=== PATIENT | male | born 1950 | race Caucasian/White ===

== ENCOUNTER 2022-04-09 19:20 | Emergency (ER) | payer MEDICARE, OTHER ==
[2022-04-09] MEDS ORDERED: ONDANSETRON 4 MG/2 ML VIAL IVP STA (19:53)
[2022-04-09] MEDS ORDERED: SODIUM CHLORIDE 0.9% 1,000 ML IV STA (19:53)
--- NOTE | 2022-04-09 19:55 | ED Physician Documentation ---
PD HPI ABD PAIN - Stated complaint Stated Complaint: VOMITING/UPPER ABDOMINAL PX - Chief complaint Chief Complaint: Abd Pain - History obtained from History obtained from: Patient - Additional information Additional information: Patient is a 72-year-old male with a history of GERD presenting for evaluation of epigastric pain and nausea with vomiting for 2 days. He initially reported the emesis consisted of food but now it is mostly liquids and bile. He reports having difficulty keeping any p.o. intake down. He denies blood or coffee- ground appearance to his emesis. He has not had a bowel movement in 4 days. He does pass some gas. He denies any history of abdominal surgeries. He reports p.o. intake makes his pain worse. He denies fever, cough, chest pain, difficulty breathing, back pain. He reports 2 days ago he was helping lift a large relative and believes this caused a strain injury but his pain did not start right away and started a few hours later. He denies using NSAIDs or alcohol. He does use marijuana occasionally. Review of Systems Constitutional: denies: Fever Nose: denies: Congestion Cardiac: denies: Chest pain / pressure, Palpitations Respiratory: denies: Dyspnea, Cough GI: reports: Abdominal Pain, Nausea, Vomiting. denies: Diarrhea, Bloody / black stool : denies: Dysuria Skin: denies: Rash Musculoskeletal: denies: Back pain Neurologic: denies: Headache PD PAST MEDICAL HISTORY - Past Medical History Past Medical History: Yes Cardiovascular: Hypertension - Past Surgical History Past Surgical History: Yes Ortho: Other - Present Medications Home Medications: Ambulatory Orders Medication Instructions Recorded Confirmed Famotidine [Pepcid] 20 mg PO BID #60 tablet 04/09/22 Ondansetron Odt [Zofran] 4 mg TL Q6H PRN #10 tablet 04/09/22 - Allergies Allergies/Adverse Reactions: Allergies Allergy/AdvReac Type Severity Reaction Status Date / Time No Known Drug Allergies Allergy Verified 04/09/22 19:32 - Social History Does the pt smoke?: No Smoking Status: Never smoker Does the pt drink ETOH?: No Does the pt have substance abuse?: No - Immunizations Immunizations are current?: No Immunizations: TDAP >10years/unknown, Other immun not current PD ED PE NORMAL - General General: Alert and oriented X 3, No acute distress, Well developed/nourished - HEENT HEENT: Atraumatic. No: Moist mucous membranes (Dry oral mucosa) - Neck Neck: Supple, no meningeal sign - Cardiac Cardiac: RRR, No murmur, Strong equal pulses - Respiratory Respiratory: No respiratory distress, Clear bilaterally - Abdomen Abdomen: Normal bowel sounds, Soft, Non distended, Other (Epigastric abdominal tenderness, no rebound, no guarding, no RUQ tenderness on deep palpation, no mass or hernia) - Back Back: No CVA TTP - Derm Derm: No rash - Extremities Extremities: No edema - Neuro Neuro: Normal speech - Psych Psych: Normal mood Results - Vitals Vitals: Vital Signs - 24 hr 04/09/22 04/09/22 04/09/22 19:27 21:53 22:23 Temperature 36.7 C Heart Rate 117 H 84 89 Respiratory 17 18 18 Rate Blood Pressure 160/99 H 159/103 H 127/99 H O2 Saturation 97 97 99 Oxygen O2 Source Room air - EKG (time done) 1955 Rate: Rate (enter#) (100) Rhythm: Sinus tachycardia Ischemia: No: ST elevation c/w ischemia Compare to prior EKG: Old EKG unavailable - Labs Labs: Laboratory Tests 04/09/22 04/09/22 04/09/22 19:55 19:55 19:55 WBC 9.4 RBC 5.91 Hgb 18.4 H Hct 52.4 H MCV 88.7 MCH 31.1 H MCHC 35.1 RDW 12.0 Plt Count 255 MPV 9.2 Neut # (Auto) 6.4 Lymph # (Auto) 2.0 [place] # (Auto) 0.9 Eos # (Auto) 0.0 Baso # (Auto) 0.0 Absolute Nucleated RBC 0.00 Nucleated RBC % 0.0 Sodium 132 L Potassium 3.3 L Chloride 98 L Carbon Dioxide 24 Anion Gap 10.0 BUN 18 Creatinine 0.9 Estimated GFR (MDRD) 83 L Glucose 124 H Lactic Acid Calcium 9.2 Total Bilirubin 1.5 H AST 23 ALT 29 Alkaline Phosphatase 48 Troponin I High Sens 11.8 Total Protein 7.1 Albumin 4.0 Globulin 3.1 Albumin/Globulin Ratio 1.3 Lipase 61 H Urine Color Urine Clarity Urine pH Ur Specific [place] Urine Protein Urine Glucose (UA) Urine Ketones Urine Occult Blood Urine Nitrite Urine Bilirubin Urine Urobilinogen Ur Leukocyte Esterase Ur Microscopic Review Urine Culture Comments 04/09/22 04/09/22 20:03 21:29 WBC RBC Hgb Hct MCV MCH MCHC RDW Plt Count MPV Neut # (Auto) Lymph # (Auto) [place] # (Auto) Eos # (Auto) Baso # (Auto) Absolute Nucleated RBC Nucleated RBC % Sodium Potassium Chloride Carbon Dioxide Anion Gap BUN Creatinine Estimated GFR (MDRD) Glucose Lactic Acid 1.2 Calcium Total Bilirubin AST ALT Alkaline Phosphatase Troponin I High Sens Total Protein Albumin Globulin Albumin/Globulin Ratio Lipase Urine Color YELLOW Urine Clarity CLEAR Urine pH 7.0 Ur Specific [place] 1.015 Urine Protein NEGATIVE Urine Glucose (UA) NEGATIVE Urine Ketones 15 H Urine Occult Blood TRACE-INTA Urine Nitrite NEGATIVE Urine Bilirubin NEGATIVE Urine Urobilinogen 0.2 (NORMAL) Ur Leukocyte Esterase NEGATIVE Ur Microscopic Review NOT INDICATED Urine Culture Comments NOT INDICATED PD MEDICAL DECISION MAKING - ED course Complexity details: reviewed results, re-evaluated patient, d/w patient ED course: Patient presenting for evaluation of upper abdominal pain with associated nausea and vomiting. An EKG was obtained showing 80 sinus rhythm. Labs were obtained including a lactic given initial tachycardia and troponin. Patient does not appear septic. His troponin is negative. Other labs were reviewed and a CT scan was obtained demonstrating renal cyst but otherwise no acute findings. Urinalysis is negative for infection. Patient had significant improvement in his symptoms with Zofran and GI cocktail and had no further episodes of emesis.His tachycardia improved and he was able to tolerate p.o. replacement of his potassium.Patient was started on medications for GERD as well as given prescription for Zofran. He is aware of strict return precautions for any worsening of his symptoms and was given information to establish care with a PCP.Patient was ambulatory at discharge. 2210 - Feeling better, resting comfortably, does not have a PCP. Discussed recommendations for medications as well asDiet. Departure - Departure Disposition: 01 Home, Self Care Clinical Impression: Epigastric abdominal pain Nausea & vomiting Qualifiers: Vomiting type: unspecified Qualified Code(s): R11.2 - Nausea with vomiting, unspecified Condition: Stable Instructions: ED PUD Vs Gastritis, ED Nausea Vomiting Follow-Up: Farshad Robledo MD [Physician No Access] - Prescriptions: Famotidine [Pepcid] 20 mg PO BID #60 tablet Ondansetron Odt [Zofran] 4 mg TL Q6H PRN #10 tablet PRN Reason: Nausea / Vomiting Comments: You were evaluated for pain to the upper abdomen along with vomiting. Your potassium was slightly low but we gave you potassium pill today. Otherwise the rest of your labs were fairly unremarkable. We checked a marker with your heart which also does not show any signs of a heart attack. Your CT scan showed cysts on Both of your kidneys which are not concerning at this time.Your symptoms could be related to your history of acid reflux. I will start you on a medication To help lower acid in your stomach as well as an antinausea medication. I do recommend that you establish care with a primary care doctor. As you do not have 1 I have included the name of a physician you can call tomorrow for an appointment.Please avoid any medications such as NSAIDs which may further irritate your stomach as well as anything too spicy or acidic.If you have any worsening symptoms, please return to the emergency department. I have sent prescriptions to [facility] in [place]. Discharge Date/Time: 04/09/22 22:25
[2022-04-09 20:02] LABS: BASOPHILS % (AUTO) 0.3 %; EOSINOPHILS % (AUTO) 0.2 %; HCT - HEMATOCRIT 52.4 % (42.0-52.0); HGB - HEMOGLOBIN 18.4 g/dL (14.0-18.0); LYMPHOCYTES % (AUTO) 21.2 %; MEAN CORPUSCULAR HEMOGLOBIN 31.1 pg (27.0-31.0); MEAN CORPUSCULAR HGB CONC 35.1 g/dL (32.0-36.0); MEAN CORPUSCULAR VOLUME 88.7 fL (80.0-94.0); MEAN PLATELET VOLUME 9.2 fL (7.4-11.4); MONOCYTES # (AUTO) 0.9 10^3/uL (0.0-1.0); MONOCYTES % (AUTO) 9.5 %; NEUTROPHILS # (AUTO) 6.4 10^3/uL (1.5-6.6); NEUTROPHILS % (AUTO) 68.5 %; PLT - PLATELET COUNT 255 10^3/uL (130-450); RED BLOOD COUNT 5.91 10^6/uL (4.70-6.10); WHITE BLOOD COUNT 9.4 x10^3/uL (4.8-10.8)
[2022-04-09 20:13] LABS: ALBUMIN/GLOBULIN RATIO 1.3 (1.0-2.2); BILIRUBIN,TOTAL 1.5 mg/dL (0.2-1.0); CALCIUM 9.2 mg/dL (8.5-10.3); CREATININE 0.9 mg/dL (0.6-1.2); POTASSIUM 3.3 mmol/L (3.5-5.0); TOTAL PROTEIN 7.1 g/dL (6.7-8.2)
--- NOTE | 2022-04-09 21:12 | CT Report ---
PROCEDURE: Abdomen/Pelvis WO INDICATIONS: upper abd pain/intractable vomiting TECHNIQUE: Noncontrast 5 mm thick sections acquired from the diaphragms to the symphysis. 5 mm coronal and sagi ttal reformats were then performed. For radiation dose reduction, the following was used: automated exposure control, adjustment of mA and/or kV according to patient size. COMPARISON: None. FINDINGS: Image quality: Excellent. Lung bases:There is mild atelectasis and scarring the lung bases. Within the left lower lobe, there is a 0.4 cm nodule on series 4 image 39. A 0.3 cm nodule is also present in the left lower lobe on se erin 4 image 7. In the right lower lobe, there are 2 small 0.4 cm nodules on series 4 image 11. A 0.3 cm nodule is also present in the right middle lobe on image 4 image 8. Heart: Heart is normal in size. There is a small hiatal hernia. ABDOMEN: Liver:Noncontrast evaluation of the liver demonstrates no discrete hepatic mass. Gallbladder: Within normal limits without calcified gallstones. Biliary ducts: No biliary ductal dilatation. Pancreas: Unremarkable. Spleen: Normal in size. Adrenal Glands: No adrenal nodules. Kidneys and Ureters: No hydronephrosis.There are bilateral exophytic and parapelvic renal cysts. No nspecific perinephric stranding is demonstrated bilaterally.The ureters are nondistended. Stomach and Bowel: Stomach, small bowel loops, and colon are normal in caliber and wall thickness. T he appendix is normal in appearance. There is colonic diverticulosis without acute diverticular colit is. Peritoneum: No abnormal intraperitoneal fluid. No free air. Ventral Wall: No hernia. Abdominal Nodes: No retroperitoneal or mesenteric adenopathy by size criteria. Vessels: Aorta and inferior vena cava are normal in size. PELVIS: Pelvic Organs: Unremarkable. Bladder: Unremarkable. Pelvic Nodes: No enlarged lymph nodes. Miscellaneous: No inguinal hernias are seen. Bones: Visualized osseous structures demonstrate no suspicious focal lesions. IMPRESSION: 1. Bilateral nonspecific perinephric stranding. Recommend correlation clinically for possible pyelone phritis. 2. Multiple bilateral renal cysts without evidence of hydronephrosis. 3. Colonic diverticulosis without acute diverticulitis. 4. No evidence of bowel obstruction. Reviewed by: Mitchell Richter MD on 04/09/2022 9:11 PM PDT Approved by: Mitchell Richter MD on 04/09/2022 9:11 PM PDT Station ID: [id number]
[2022-04-09] MEDS ORDERED: LIDOCAINE VISCOUS 2% 15 ML UDC MM STA (21:24)
[2022-04-09] MEDS ORDERED: MAG HYDROX/AL HYDROX/SIMETH 30 ML UDC PO STA (21:24)
[2022-04-09 21:53] LABS: BILIRUBIN,URINE NEGATIVE (NEGATIVE); GLUCOSE, URINE (UA) NEGATIVE (NEGATIVE); KETONES,URINE (UA) 15 mg/dL (NEGATIVE); LEUKOCYTE ESTERASE, URINE NEGATIVE (NEGATIVE); NITRITE,URINE NEGATIVE (NEGATIVE); OCCULT BLOOD,URINE TRACE-INTA (NEGATIVE); PROTEIN,URINE NEGATIVE (NEGATIVE); UROBILINOGEN,URINE 0.2 (NORMAL) E.U./dL (NORMAL)
[2022-04-09 21:54] LABS: CLARITY,URINE CLEAR (CLEAR)
[2022-04-09] MEDS ORDERED: ONDANSETRON ODT 4 MG Prepack 2 TL PRN (22:12)
[2022-04-09] MEDS ORDERED: POTASSIUM CHLORIDE 20 MEQ TABLET PO STA (22:12)
[2022-04-09 22:24] VITALS: BP 127/99
== END 2022-04-09 22:25 | disposition home or self-care (01) ==
LOC: ED 19:20
DX: R10.13 Epigastric pain (principal); R11.2 Nausea with vomiting, unspecified; I10 Essential (primary) hypertension; N28.1 Cyst of kidney, acquired
CPT/HCPCS: 36415; 74176; 80053; 81003; 83605; 83690; 84484; 85025; 93005; 96361; 96374; 99282; 99284; A9270; 81001; 87086

== ENCOUNTER 2024-03-10 10:31 | Emergency (ER) | payer MEDICARE, OTHER ==
[2024-03-10 11:16] LABS: BASOPHILS % (AUTO) 0.2 %; HCT - HEMATOCRIT 57.5 % (42.0-52.0); HGB - HEMOGLOBIN 19.4 g/dL (14.0-18.0); LYMPHOCYTES # (AUTO) 2.9 10^3/uL (1.5-3.5); LYMPHOCYTES % (AUTO) 23.3 %; MEAN CORPUSCULAR HEMOGLOBIN 30.7 pg (27.0-31.0); MEAN CORPUSCULAR HGB CONC 33.7 g/dL (32.0-36.0); MEAN CORPUSCULAR VOLUME 91.1 fL (80.0-94.0); MEAN PLATELET VOLUME 9.4 fL (7.4-11.4); MONOCYTES # (AUTO) 1.2 10^3/uL (0.0-1.0); MONOCYTES % (AUTO) 9.6 %; NEUTROPHILS # (AUTO) 8.4 10^3/uL (1.5-6.6); NEUTROPHILS % (AUTO) 66.7 %; PLT - PLATELET COUNT 302 10^3/uL (130-450); RED BLOOD COUNT 6.31 10^6/uL (4.70-6.10); RED CELL DISTRIBUTION WIDTH 12.5 % (12.0-15.0); WHITE BLOOD COUNT 12.6 x10^3/uL (4.8-10.8)
[2024-03-10 11:17] LABS: BILIRUBIN,URINE MODERATE (NEGATIVE); GLUCOSE, URINE (UA) NEGATIVE (NEGATIVE); KETONES,URINE (UA) >=80 mg/dL (NEGATIVE); LEUKOCYTE ESTERASE, URINE NEGATIVE (NEGATIVE); NITRITE,URINE NEGATIVE (NEGATIVE); OCCULT BLOOD,URINE TRACE-INTA (NEGATIVE); PROTEIN,URINE 100 mg/dL (NEGATIVE); UROBILINOGEN,URINE 0.2 (NORMAL) E.U./dL (NORMAL)
[2024-03-10 11:28] LABS: CLARITY,URINE CLEAR (CLEAR)
[2024-03-10 11:37] LABS: BACTERIA,URINE Moderate /HPF (None Seen); RBC,URINE 0-5 /HPF (0-5); SQUAMOUS EPITHELIAL CELL,UR FEW Squamous (<= Few)
[2024-03-10 11:38] LABS: MUCUS,URINE Marked Strands
[2024-03-10 11:50] LABS: ALBUMIN 4.7 g/dL (3.2-5.5); ALBUMIN/GLOBULIN RATIO 1.9 (1.0-2.2); CALCIUM 10.1 mg/dL (8.5-10.3); CREATININE 1.2 mg/dL (0.6-1.3); POTASSIUM 3.6 mmol/L (3.5-4.5); TOTAL PROTEIN 7.2 g/dL (6.4-8.9)
--- NOTE | 2024-03-10 13:32 | ED Physician Documentation ---
PD HPI NVD - Stated complaint Stated Complaint: THROAT CLOGGED - Chief complaint Chief Complaint: Abd Pain - History obtained from History obtained from: Patient - History of Present Illness Timing - onset: How many days ago (4) Timing - duration: Days (4) Timing - details: Abrupt onset (had dinner at 6 pm without problems and had not noted upper abd pain nor heartburn. Awoke 2 am with nausea and vomiting that has persisted with any attempt at PO intake except smallest sips. emesis is clear. Not vomiting saliva.), Still present Associated symptoms: Abdominal pain (epigastric area). No: Loss of appetite Contributing factors: No: Sick contact, Bad food, Alcohol use Similar symptoms before: Has not had sx before Recently seen: Clinic (went to walk in this morning and referred to ER.) Review of Systems Constitutional: denies: Fever, Chills Nose: denies: Rhinorrhea / runny nose, Congestion Throat: denies: Sore throat Respiratory: denies: Cough GI: reports: Abdominal Pain, Nausea, Vomiting. denies: Constipation, Diarrhea, Hematemesis Neurologic: reports: Generalized weakness. denies: Focal weakness, Numbness, Near syncope PD PAST MEDICAL HISTORY - Past Medical History Past Medical History: Yes Cardiovascular: Hypertension Respiratory: None Neuro: Peripheral neuropathy Endocrine/Autoimmune: None GI: GERD : Kidney stones HEENT: None Psych: None Musculoskeletal: None Derm: None - Past Surgical History Past Surgical History: Yes Ortho: Other HEENT: Tonsil/Adenoidectomy - Present Medications Home Medications: Ambulatory Orders Medication Instructions Recorded Confirmed Lidocaine Viscous 2% [Xylocaine 5 ml PO Q4H PRN #100 ml 03/10/24 Viscous 2%] Ondansetron Odt [Zofran] 4 mg TL Q6H PRN #15 tablet 03/10/24 Pantoprazole [Protonix] 40 mg PO DAILY 30 Days #30 tablet 03/10/24 Sucralfate [Carafate] 1 gm PO ACHS #60 tablet 03/10/24 - Allergies Allergies/Adverse Reactions: Allergies Allergy/AdvReac Type Severity Reaction Status Date / Time No Known Drug Allergies Allergy Verified 03/10/24 10:48 - Social History Does the pt smoke?: No Smoking Status: Never smoker Does the pt drink ETOH?: No Does the pt have substance abuse?: Yes Substance Use and Type: Marijuana - Immunizations Immunizations are current?: No Immunizations: TDAP >10years/unknown, Other immun not current PD ED PE NORMAL - Vitals Vital signs reviewed: Yes (tachycardic) - General General: Alert and oriented X 3, No acute distress, Well developed/nourished - HEENT HEENT: Pharynx benign. No: Moist mucous membranes - Neck Neck: Supple, no meningeal sign, No adenopathy - Cardiac Cardiac: RRR, No murmur - Respiratory Respiratory: No respiratory distress, Clear bilaterally - Abdomen Abdomen: Normal bowel sounds, Soft, Non distended, No organomegaly, Other (tender epigastric area. ) Results - Vitals Vitals: Vital Signs - 24 hr 03/10/24 03/10/24 03/10/24 10:48 13:39 15:00 Temperature 37.1 C 37.0 C 36.8 C Heart Rate 114 H 90 88 Respiratory 18 18 16 Rate Blood Pressure 120/77 122/76 120/68 O2 Saturation 98 100 100 03/10/24 03/10/24 17:11 18:39 Temperature 36.6 C 36.5 C Heart Rate 80 80 Respiratory 16 16 Rate Blood Pressure 145/95 H 138/88 H O2 Saturation 99 100 Oxygen O2 Source Room air - Labs Labs: Laboratory Tests 03/10/24 03/10/24 03/10/24 11:10 11:10 11:10 WBC 12.6 H RBC 6.31 H Hgb 19.4 H Hct 57.5 H MCV 91.1 MCH 30.7 MCHC 33.7 RDW 12.5 Plt Count 302 MPV 9.4 Neut # (Auto) 8.4 H Lymph # (Auto) 2.9 [place] # (Auto) 1.2 H Eos # (Auto) 0.0 Baso # (Auto) 0.0 Absolute Nucleated RBC 0.00 Nucleated RBC % 0.0 Sodium 133 L Potassium 3.6 Chloride 97 L Carbon Dioxide 27 Anion Gap 9.0 BUN 23 H Creatinine 1.2 Estimated GFR (MDRD) 59 L Glucose 110 H Calcium 10.1 Total Bilirubin 2.0 H AST 22 ALT 25 Alkaline Phosphatase 60 Total Protein 7.2 Albumin 4.7 Globulin 2.5 Albumin/Globulin Ratio 1.9 Lipase 21 Urine Color DARK YELLOW Urine Clarity CLEAR Urine pH 6.0 Ur Specific [place] 1.020 Urine Protein 100 H Urine Glucose (UA) NEGATIVE Urine Ketones >=80 H Urine Occult Blood TRACE-INTA Urine Nitrite NEGATIVE Urine Bilirubin MODERATE H Urine Urobilinogen 0.2 (NORMAL) Ur Leukocyte Esterase NEGATIVE Urine RBC 0-5 Urine WBC 6-10 H Ur Squamous Epith Cells FEW Squamous Urine Bacteria Moderate H Urine Casts 3-5 Cellular Casts Urine Mucus Marked Strands Ur Microscopic Review INDICATED Urine Culture Comments NOT INDICATED - Rads (name of study) chest CT with contrast Relevant Findings:: Prelim report reviewed (normal oral contrast into small intestine without signs of mass, obstruction, strictures. No extravasation. Stable sub 6mm nodules in lung unchanged in size from 2021. ), EMP independent interpretation of test PD Medical Decision Making - ED course Complexity details: reviewed results (CT showing no signs of obstruction. Prior small nodules from 2021 again noted without change in size. Conveyed to pt along with no signs of blockage. He is feeling better with IV fluids/meds and GI cocktail. Presume esophagitis/gastritis. ), re-evaluated patient (he is feeling improved and able to drink more than sips at this time without emesis nor pain. Corresponds with gastritis/esophagitis concept. He is here from [place], [place] and returning home in 2 days. Instructed to follow up there with PCP/[facility] and consider referral to surgery for EGD. ), considered differential (concern for esophageal obstruction or stricture given repeated vomiting of clear emesis after attempted PO intake. Small sips only kept down. ), d/w patient Departure - Departure Disposition: 01 Home, Self Care Clinical Impression: Acute esophagitis, Acute gastritis, Multiple lung nodules on CT Condition: Stable Record reviewed to determine appropriate education?: Yes Instructions: ED PUD Vs Gastritis Prescriptions: Sucralfate [Carafate] 1 gm PO ACHS #60 tablet Pantoprazole [Protonix] 40 mg PO DAILY 30 Days #30 tablet Lidocaine Viscous 2% [Xylocaine Viscous 2%] 5 ml PO Q4H PRN #100 ml PRN Reason: Pain Ondansetron Odt [Zofran] 4 mg TL Q6H PRN #15 tablet PRN Reason: Nausea / Vomiting Comments: Your CT scan did not show any signs of strictures/tightness, masses, swelling at the esophagus or stomach. The contrast you swallowed did make its way through readily passed the esophagus and stomach into the intestine. No signs of blockages therefore. I would assume you are having inflammation of the esophagus and the pain causing some spasming and therefore the vomiting back up. This can be related to reflux or inflammation of the esophagus as well as the stomach lining. [facility] with [facility] this coming week or when back home. Call for an appointment. Meanwhile we will go with some acid reducing medicine. I wrote for Protonix daily for the next month. In addition we will coat the esophagus and stomach with sacral fate/Carafate 4 times daily. Small frequent fluids and liquids only for the next several days. Increase after that if tolerated. In addition you can use Tylenol if needed for pain. Ondansetron if needed for nausea. You can also combine the lidocaine with antacid such as Maalox or Mylanta like we gave you here to help with discomfort as well. Return to the ER if recurrent vomiting and unable to keep things down despite the above medications. I sent the prescriptions to your listed pharmacy. Your CT scan also shows small nodules in lung that are the same as from CT in 2021, no growth nor change. Forms: PCP List Discharge Date/Time: 03/10/24 18:39
[2024-03-10] MEDS ORDERED: DIATRIZOATE MEGLU/DIATRIZO SOD 30 ML BOTTLE PO ONE (14:16)
[2024-03-10] MEDS ORDERED: iohexoL-300 100 ML VIAL ONE (14:16)
[2024-03-10] MEDS: SODIUM CHLORIDE 0.9% 1,000 ML IV STA (14:53)
[2024-03-10] MEDS: ONDANSETRON 4 MG/2 ML VIAL IVP STA (14:53)
[2024-03-10] MEDS: KETOROLAC 15 MG/ML VIAL IVP STA (14:55)
[2024-03-10] MEDS: FAMOTIDINE 20 MG/2 ML VIAL IVP STA (14:56)
[2024-03-10] MEDS: iohexoL-300 100 ML VIAL IVP ONE (15:24)
[2024-03-10] MEDS: LACTATED RINGERS 1,000 ML IV ONE (16:00)
[2024-03-10] MEDS: LIDOCAINE VISCOUS 2% 15 ML UDC MM STA (16:01)
[2024-03-10] MEDS: MAG HYDROX/AL HYDROX/SIMETH 30 ML UDC PO STA (16:01)
--- NOTE | 2024-03-10 16:05 | CT Report ---
PROCEDURE: Chest W INDICATIONS: vomiting 4 days; ? esophageal obstruction CONTRAST: 100ml [id number] TECHNIQUE: After the administration of intravenous contrast, a CT scan of the chest was performed. Images were recorded and evaluated at appropriate window settings. Reformats: axial MIP of the chest, coronal and sagittal. For radiation dose reduction, the following was used: automated exposure control, adjustme nt of mA and/or kV according to patient size. COMPARISON: CT abdomen pelvis without contrast 04/09/2022. FINDINGS: Image quality: Diagnostic. Chest wall and lower neck: No thyroid nodule which requires sonographic follow up. No axillary or sup raclavicular adenopathy by size. Lungs and pleura: No consolidation. No pleural effusions. No pneumothorax. Stable sub-6 mm solid pul monary nodules since 04/09/2022. No new or enlarging pulmonary nodule. Mediastinum: Heart size is normal. No pericardial effusion. No large vessel abnormality. No mediastin al adenopathy by size criteria. Contrast opacifies the esophagus without evidence of filling defect. No extravasation of contrast identified. Bones: No aggressive osseous abnormality. Upper Abdomen: Stable bilateral exophytic simple renal cysts. IMPRESSION: No CT evidence of esophageal obstruction as clinically queried. No acute process identified. Scattered sub-6 mm solid pulmonary nodules. If patient is high risk for lung malignancy recommend fol low-up CT chest in 12 months to demonstrate stability per Fleischner Society guidelines. Reviewed by: Sweta Groves MD, PhD on 03/10/2024 3:04 PM [facility] Approved by: Sweta Groves MD, PhD on 03/10/2024 3:04 PM [facility] Station ID: [id number]
[2024-03-10] MEDS: SUCRALFATE 1 GM/10 ML UDC PO STA (17:51)
[2024-03-10 18:48] VITALS: BP 138/88; O2SAT 100
== END 2024-03-10 18:39 | disposition home or self-care (01) ==
LOC: ED 10:31
DX: K20.90 Esophagitis, unspecified without bleeding (principal); K29.00 Acute gastritis without bleeding; R91.8 Other nonspecific abnormal finding of lung field
CPT/HCPCS: 36415; 71260; 80053; 81001; 83690; 85025; 96361; 96374; 96375; 99284; A9270; J7120; Q9963; Q9967; 81003; 87086